=== PATIENT | male | born 1995 | race Caucasian/White ===

== ENCOUNTER 2016-05-21 14:07 | Emergency (ER) | payer OTHER ==
[2016-05-21] MEDS ORDERED: Ondansetron INJ* 2 MG/ML VIAL IV ONE (14:12)
[2016-05-21] MEDS ORDERED: NS 0.9% 1000 ML* 2,000 ML IV ONE (14:12)
[2016-05-21 15:18] LABS: Hematocrit 46 % (42-52); Hemoglobin 15.3 g/dl (14.0-18.0); Mean Corpuscular HGB Conc 34 g/dl (31-36); Mean Corpuscular Hemoglobin 29 pg (27-31); Mean Corpuscular Volume 86 fL (80-94); Mean Platelet Volume 9 um3 (7.4-10.4); Red Blood Count 5.26 10^6/ul (4.0-5.4); Red Cell Distribution Width 13 % (10.5-15); White Blood Count 13.6 10^3/ul (3.5-10.8)
[2016-05-21 15:22] LABS: Add Diff/Slide Review? Slide Review Added; Comments Flag Yes
[2016-05-21 15:33] LABS: BUN/Creatinine Ratio 7.4 (8-20); C Reactive Protein 5.19 mg/L (< 5.00); Calcium 9.6 mg/dL (8.6-10.3); EGFR Non-African American 101.1 (>60); Globulin 3.5 g/dL (2-4); Potassium 4.6 mmol/L (3.5-5.0); Total Protein 7.5 g/dL (6.4-8.9)
--- NOTE | 2016-05-21 15:36 | ED ---
Abdominal Pain/Male - HPI Summary HPI Summary: 21M presents with RLQ abdominal pain for 3 days. He states he has been sick for 3 weeks with fatigue and was diagnosed with mono last week. He admits to decrease in appetite. His last meal was this morning. He states he was nauseous. He denies any testicular pain, vomiting, diarrhea, and constipation. He denies any blood in his urine or stool. He denies any previous abdominal surgeries. He has never had this pain before. He was sent by [facility] to r/o appendicitis. - History of Current Complaint Chief Complaint: EDAbdPain Stated Complaint: ABD PAIN/FIVE STAR Time Seen by Provider: 05/21/16 14:57 Pain Intensity: 6 - Allergies/Home Medications Allergies/Adverse Reactions: Allergies Allergy/AdvReac Type Severity Reaction Status Date / Time No Known Allergies Allergy Verified 05/21/16 14:14 PMH/Surg Hx/FS Hx/Imm Hx Infectious Disease History: Yes Infectious Disease History: Denies: Traveled Outside the [place] in Last 30 Days - Social History Alcohol Use: Rare Substance Use Type: Reports: None Smoking Status (MU): Never Smoked Tobacco Review of Systems Negative: Fever Negative: Chest Pain Negative: Shortness Of Breath Positive: Abdominal Pain - RLQ pain, Nausea. Negative: Vomiting, Diarrhea All Other Systems Reviewed And Are Negative: Yes Physical Exam Triage Information Reviewed: Yes Vital Signs On Initial Exam: Initial Vitals Temp Pulse Resp BP Pulse Ox 98.2 F 84 18 118/74 100 05/21/16 14:14 05/21/16 14:14 05/21/16 14:14 05/21/16 14:14 05/21/16 14:14 Vital Signs Reviewed: Yes Appearance: Positive: Well-Appearing Skin: Positive: Warm, Dry Head/Face: Positive: Normal Head/Face Inspection Eyes: Positive: Normal, Conjunctiva Clear ENT: Positive: Normal ENT inspection, Pharynx normal, TMs normal Respiratory/Lung Sounds: Positive: Clear to Auscultation, Breath Sounds Present Cardiovascular: Positive: Normal, RRR Abdomen Description: Positive: Soft, Other: - RLQ tenderness, neg rovsings, obturator - Yogi Coma Scale Coma Scale Total: 15 Diagnostics - Vital Signs Vital Signs Temp Pulse Resp BP Pulse Ox 05/21/16 15:02 84 100 05/21/16 15:00 166/116 05/21/16 14:14 98.2 F 84 18 118/74 100 - Laboratory Lab Results: Lab Results 05/21/16 05/21/16 05/21/16 Range/Units 15:10 15:10 15:10 WBC 13.6 H (3.5-10.8) 10^3/ul RBC 5.26 (4.0-5.4) 10^6/ul Hgb 15.3 (14.0-18.0) g/dl Hct 46 (42-52) % MCV 86 (80-94) fL MCH 29 (27-31) pg MCHC 34 (31-36) g/dl RDW 13 (10.5-15) % Plt Count 163 (150-450) 10^3/ul MPV 9 (7.4-10.4) um3 Neut % (Auto) 27.3 L (38-83) % Lymph % (Auto) 63.5 H (25-47) % [place] % (Auto) 8.6 (1-9) % Eos % (Auto) 0.2 (0-6) % Baso % (Auto) 0.4 (0-2) % Absolute Neuts (auto) 3.7 (1.5-7.7) 10^3/ul Absolute Lymphs (auto) 8.7 H (1.0-4.8) 10^3/ul Absolute Monos (auto) 1.2 H (0-0.8) 10^3/ul Absolute Eos (auto) 0 (0-0.6) 10^3/ul Absolute Basos (auto) 0 (0-0.2) 10^3/ul Absolute Nucleated RBC 0.07 10^3/ul Nucleated RBC % 0.5 Sodium 136 (133-145) mmol/L Potassium 4.6 (3.5-5.0) mmol/L Chloride 102 (101-111) mmol/L Carbon Dioxide 28 (22-32) mmol/L Anion Gap 6 (2-11) mmol/L BUN 7 (6-24) mg/dL Creatinine 0.95 (0.67-1.17) mg/dL Est GFR ( Amer) 130.0 (>60) Est GFR (Non-Af Amer) 101.1 (>60) BUN/Creatinine Ratio 7.4 L (8-20) Glucose 90 (70-100) mg/dL Lactic Acid 0.9 (0.5-2.0) mmol/L Calcium 9.6 (8.6-10.3) mg/dL Total Bilirubin 1.00 (0.2-1.0) mg/dL AST 180 H (13-39) U/L ALT Pending Alkaline Phosphatase 196 H (34-104) U/L C-Reactive Protein 5.19 H (< 5.00) mg/L Total Protein 7.5 (6.4-8.9) g/dL Albumin 4.0 (3.2-5.2) g/dL Globulin 3.5 (2-4) g/dL Albumin/Globulin Ratio 1.1 (1-3) Lipase 17 (11.0-82.0) U/L Result Diagrams: 05/21/16 15:10 05/21/16 15:10 Lab Statement: Any lab studies that have been ordered have been reviewed, and results considered in the medical decision making process. - CT abdomen CT Interpretation: Positive (See Comments) - IMPRESSION: 1. THE APPENDICEAL WALL IS SLIGHTLY THICKENED ALTHOUGH THE APPENDIX FILLS WITH CONTRAST AND IS NOT OBSTRUCTED FAVORING THAT THE WALL THICKENING IS INCIDENTAL. RECOMMEND CLINICAL CORRELATION AND FOLLOW-UP. 2. SPLENOMEGALY. 3. ENLARGED MESENTERIC LYMPH NODES MOST PROMINENT IN THE RIGHT LOWER QUADRANT POSSIBLY INDICATING MESENTERIC LYMPHADENITIS OR ALTERNATIVELY SECONDARY TO THE PATIENT'S HISTORY OF MONONUCLEOSIS. CT Interpretation Completed By: Radiologist Re-Evaluation - Re-Evaluation First Eval Re-Evaluation Time: 16:45 Change: Unchanged Comment: patient declined any pain medication, explained results that lfts still elevated but still in acute phase on mono due to still having symptoms, elevated wbc but unsure if due to mono or something else so will have to wait for CT Second Eval Re-Evaluation Time: 18:36 Change: Unchanged Comment: pain mild in RLQ without rebound Abdominal Pain Fem Course/Dx - Course Course Of Treatment: 21M presents with RLQ pain for 3 days. was diagnosed with mono a week ago and had elevated liver enzymes. admits to anorexia. denies any n /v/d currently. on exam mild tenderness to RLQ without rebound or guarding. labs : elevated wbc, mono test positive, elevated LFT discussed with dr flynn that needs to follow up with yessi in couple weeks to make sure labs trend downward. CT shows splenomegaly, enlarged mesenteri lymph nodes, thickened appendical wall that does not appear obstructive, called dr gallardo and said likely mesenteric adenitis and can have follow up in office tomorrow. discussed results with patient. patient understands and agrees with plan - Diagnoses Differential Diagnosis/HQI/PQRI: Appendicitis, Pancreatitis, Other - mono Provider Diagnoses: Mononucleosis, RLQ abdominal pain - Provider Notifications Discussed Care Of Patient With: dr gallardo Time Discussed With Above Provider: 18:26 - will see in office tomorrow, likely mesenteric lymphadenitis Discharge - Discharge Plan Condition: Good Disposition: HOME Prescriptions: Ondansetron ODT TAB* [Zofran Odt TAB*] 4 mg PO Q6H PRN #12 tab.odt PRN Reason: Nausea Patient Education Materials: Acute Abdominal Pain (ED) Forms: *School Release Referrals: Gildardo Gallardo MD [Medical Doctor] - [facility] YESSI Torres [Primary Care Provider] - Additional Instructions: Take Tylenol or ibuprofen for pain every 6 hours Take zofran every 6 hours as needed for nausea Follow up with surgery tomorrow for reevaluation Follow up with Yessi to make sure liver functions test trend downward Return to ED if develop any new or worsening symptoms
[2016-05-21 15:50] LABS: Eosinophils % 1 % (0-6); Immature Granulocytes 1 % (0-9); Neutrophil % 28 % (38-83); Reactive Lymph % 40 % (0-6)
[2016-05-21 15:52] LABS: Add Path Review? YES; Mono Internal Control QC Line Present; RBC Morphology Normal (Normal)
[2016-05-21] MEDS ORDERED: Iohexol 300* (CONTRAST) 10 ML SDV IV ONE (16:35)
[2016-05-21 17:30] LABS: Urine Bilirubin Negative (Negative); Urine Glucose Negative (Negative); Urine Nitrite Negative (Negative)
--- NOTE | 2016-05-21 17:59 | RAD ---
INDICATION: Right lower quadrant abdominal pain. COMPARISON: There are no prior studies available for comparison. TECHNIQUE: A CT scan of the abdomen and pelvis was performed with intravenous and oral contrast following intravenous injection of 127 ml of Omnipaque 300 nonionic contrast. Contiguous axial sections were obtained from the lung bases through the symphysis pubis. Images were reconstructed in the coronal and sagittal planes. FINDINGS: The lung bases are clear. No pleural effusion is present. The liver is normal size without significant focal abnormality. No calcified gallstones are seen. The pancreas appears to be within normal limits. The spleen is moderately enlarged measuring 14.8 x 14.5 x 6.5 cm. No focal splenic abnormality is seen. The kidneys and adrenal glands are normal in size. No hydronephrosis is seen. No significant focal renal abnormality is seen. The aorta is normal in caliber and demonstrates homogeneous contrast opacification. There are enlarged mesenteric lymph nodes which are most prominent in the right lower quadrant measuring up to 1.5 cm in transverse dimension. There are also enlarged mesenteric lymph nodes in the periportal region measuring up to 1.3 cm in transverse dimension. No significant enlarged retroperitoneal lymph nodes are seen. The stomach, small and large bowel appear nondistended. The appendiceal wall is slightly thickened although the appendix fills with contrast and is not obstructed. No surrounding inflammatory changes are seen.. There is mild descending and sigmoid diverticulosis without evidence for diverticulitis. No free intraperitoneal air or fluid is seen. No significant focal osseous abnormality is seen. IMPRESSION: 1. THE APPENDICEAL WALL IS SLIGHTLY THICKENED ALTHOUGH THE APPENDIX FILLS WITH CONTRAST AND IS NOT OBSTRUCTED FAVORING THAT THE WALL THICKENING IS INCIDENTAL. RECOMMEND CLINICAL CORRELATION AND FOLLOW-UP. 2. SPLENOMEGALY. 3. ENLARGED MESENTERIC LYMPH NODES MOST PROMINENT IN THE RIGHT LOWER QUADRANT POSSIBLY INDICATING MESENTERIC LYMPHADENITIS OR ALTERNATIVELY SECONDARY TO THE PATIENT'S HISTORY OF MONONUCLEOSIS.
[2016-05-21] MEDS ORDERED: Ondansetron ODT TAB* 4 MG PO ONE (18:24)
[2016-05-21 18:27] VITALS: BP 129/59
== END 2016-05-21 18:41 | disposition home or self-care (01) ==
LOC: ED 14:07
DX: B27.90 Infectious mononucleosis, unspecified without complication (principal); R10.31 Right lower quadrant pain
CPT/HCPCS: 36415; 74177; 80053; 81003; 83605; 83690; 85025; 85060; 86140; 86308; 99283; A9270-GY; Q9967

== ENCOUNTER 2018-01-13 20:46 | Emergency (ER) | payer OTHER ==
[2018-01-13] MEDS ORDERED: Naproxen TAB* 250 MG PO ONE (21:10)
--- NOTE | 2018-01-13 21:18 | ED ---
Back Pain - HPI Summary HPI Summary: A 22 y/o M presents to ED with c/o acute on chronic back pain and worsening. The back pain radiates to his neck. Associated sx: intermittent episodes of UE numbness and tingling that shoots to his hands. He saw a physician over the summer who gave dx: disc herniation with Rx which helped at the time, but is no longer as effective. Pt initially hurt himself at the gym, but he has since stopped going due to worsening pain and sx. Pt has tried chiropractor, massage therapy and acupuncture to no relief. Pt denies recent tick bite. - History of Current Complaint Chief Complaint: EDNeckComplaint Stated Complaint: NECK/BACK PAIN Time Seen by Provider: 01/13/18 20:59 Hx Obtained From: Patient Onset/Duration: Still Present Onset/Duration: Still Present Timing: Constant Back Pain Location: Is Diffuse - upper back and neck Severity Initially: Severe Severity Currently: Severe Pain Intensity: 8 Pain Scale Used: 0-10 Numeric Alleviating Symptom(s): Nothing Associated Signs And Symptoms: Positive: Numbness - UE, Tingling - UE - Allergies/Home Medications Allergies/Adverse Reactions: Allergies Allergy/AdvReac Type Severity Reaction Status Date / Time No Known Allergies Allergy Verified 05/21/16 14:14 PMH/Surg Hx/FS Hx/Imm Hx Previously Healthy: Yes - pos: mono Endocrine/Hematology History: Denies: Hx Diabetes - Surgical History Surgery Procedure, Year, and Place: VSD surgery in 2004 Infectious Disease History: No Infectious Disease History: Denies: Traveled Outside the [place] in Last 30 Days - Family History Known Family History: Negative: Other - neg: RA, Crohns - Social History Occupation: Student Lives: Dormitory/Roommates Alcohol Use: Rare Hx Substance Use: No Substance Use Type: Reports: None Hx Tobacco Use: No Smoking Status (MU): Never Smoked Tobacco Review of Systems Negative: Fever Positive: Myalgia - back and neck pain Positive: Numbness - and tingling to UE All Other Systems Reviewed And Are Negative: Yes Physical Exam - Summary Physical Exam Summary: Appearance: Well appearing, no pain distress Skin: warm, dry, reflects adequate perfusion Head/face: normal Eyes: EOMI, MEKA ENT: mucous membranes moist Neck: supple, non-tender, no midline tenderness Respiratory: CTA, breath sounds present Cardiovascular: RRR, pulses symmetrical Abdomen: non-tender, soft Bowel Sounds: present Musculoskeletal: normal, strength/ROM intact, no palpable tenderness Neuro: normal, sensory motor intact, A&Ox3 Triage Information Reviewed: Yes Vital Signs On Initial Exam: Initial Vitals Temp Pulse Resp BP Pulse Ox 98.2 F 97 18 161/68 100 01/13/18 20:47 01/13/18 20:47 01/13/18 20:47 01/13/18 20:47 01/13/18 20:47 Vital Signs Reviewed: Yes Diagnostics - Vital Signs Vital Signs Temp Pulse Resp BP Pulse Ox 01/13/18 20:47 98.2 F 97 18 161/68 100 - Laboratory Lab Statement: Any lab studies that have been ordered have been reviewed, and results considered in the medical decision making process. - Radiology L-spine Radiology Interpretation Completed By: ED Physician Summary of Radiographic Findings: Loss of Lordotic curve. C-spine Radiology Interpretation Completed By: ED Physician Summary of Radiographic Findings: Cervical straightening. Re-Evaluation - Re-Evaluation 1 Re-Evaluation Time: 21:44 Change: Improved Comment: Discussing XR results and plan for DC. Pt voiced understanding. Back Pain Course/Dx - Course Course Of Treatment: Patient with chronic neck and back pain with x-rays that show straightening in both areas. Concern is for possible autoimmune or rheumatologic disorder. He will need to follow up closely with [facility] to have appropriate referrals and baseline testing done. He may need other imaging to include MRI. - Diagnoses Differential Diagnosis/HQI/PQRI: Positive: Strain, Sprain, Other - Rheumatoid arthritis, osteoarthritis, ankylosing spondylitis, other autoimmune disorder Provider Diagnoses: Chronic neck and back pain Discharge - Sign-Out/Discharge Documenting (check all that apply): Patient Departure - DC - Discharge Plan Condition: Improved Disposition: HOME Prescriptions: methylPREDNISolone [Medrol] 4 mg PO DAILY #1 tab.ds.pk Patient Education Materials: Chronic Back Pain (DC), Neck Pain (ED) Referrals: [facility] [Provider Group] Deepa Guerrero MD [Medical Doctor] - Additional Instructions: Call [facility] in the morning to schedule prompt follow-up. They should be able to order advanced imaging such as MRI of the areas of concern. They can also refer you to spine doctors. The number is attached. Return if worse, numbness, weakness, difficulty with bowel/bladder, new symptoms or other concerns. - Billing Disposition and Condition Condition: IMPROVED Disposition: Home - Attestation Statements Document Initiated by Scribe: Yes Documenting Scribe: Evelio Madrid Provider For Whom Scribe is Documenting (Include Credential): Dr. Dominik Tate MD Scribe Attestation: I, Evelio Madrid, scribed for Dr. Dominik Tate MD on 01/14/18 at 0411. Scribe Documentation Reviewed: Yes Provider Attestation: The documentation as recorded by the Evelio quan accurately reflects the service I personally performed and the decisions made by me, Dr. Dominik Tate MD
[2018-01-13] MEDS ORDERED: predniSONE TAB* 20 MG PO ONE (21:40)
[2018-01-13 22:00] VITALS: BP 124/76
--- NOTE | 2018-01-14 07:41 | RAD ---
INDICATION: Neck pain, radiculopathy. COMPARISON: There are no relevant prior studies available for comparison. TECHNIQUE: 3 views of the cervical spine were obtained including lateral, AP and open-mouth odontoid views. FINDINGS: C1-C7 are visualized. There is straightening of the cervical spine with loss of the normal cervical lordosis. No prevertebral soft tissue swelling or fracture is seen. There is mild degenerative disc disease at the C5-C6 level. IMPRESSION: 1. STRAIGHTENING OF THE CERVICAL SPINE. 2. MILD DEGENERATIVE DISC DISEASE. R0
--- NOTE | 2018-01-14 07:44 | RAD ---
INDICATION: Low back pain for 6 months. COMPARISON: There are no relevant prior studies available for comparison. TECHNIQUE: 5 views of the lumbar spine were obtained including lateral, oblique, AP and a coned-down lateral view of the lumbar sacral junction. FINDINGS: There is straightening of the lumbar spine. The vertebra are otherwise in normal alignment. No fracture is seen. Disc spaces appear maintained. IMPRESSION: DECREASE IN THE NORMAL LUMBAR LORDOSIS OTHERWISE UNREMARKABLE. R0
== END 2018-01-13 21:58 | disposition home or self-care (01) ==
LOC: ED 20:46
DX: M50.322 Other cervical disc degeneration at C5-C6 level (principal); M54.5 Low back pain
CPT/HCPCS: 72040; 72110; 99282; A9270-GY

== ENCOUNTER 2018-02-13 19:46 | Emergency (ER) | payer OTHER ==
[2018-02-13 21:02] LABS: ABS Basophils 0 10^3/ul (0-0.2); ABS Eosinophils 0.1 10^3/ul (0-0.6); ABS Lymphocytes 3.2 10^3/ul (1.0-4.8); ABS Monocytes 0.8 10^3/ul (0-0.8); ABS Neutrophils 3.9 10^3/ul (1.5-7.7); ABS Nucleated RBC 0 10^3/ul; Eosinophil % 1.7 %; Hematocrit 44 % (42-52); Hemoglobin 15.3 g/dl (14.0-18.0); Lymphocyte % 39.5 %; Mean Corpuscular HGB Conc 35 g/dl (31-36); Mean Corpuscular Hemoglobin 30 pg (27-31); Mean Corpuscular Volume 87 fL (80-94); Mean Platelet Volume 8.6 fL (7.4-10.4); Nucleated Red Blood Cells % 0; Platelet Count 236 10^3/ul (150-450); Red Cell Distribution Width 14 % (10.5-15); White Blood Count 8.1 10^3/ul (3.5-10.8)
[2018-02-13 21:19] LABS: EGFR Non-African American 83.6 (>60)
[2018-02-13] MEDS ORDERED: hydrOXYzine HCL TAB* 50 MG PO ONE (22:40)
[2018-02-13] MEDS ORDERED: Lidocaine 2% VISCOUS* 15 ML UDC PO ONE (22:42)
[2018-02-13] MEDS ORDERED: Al Hydrox/Mg Hydrox/Simet LIQ* 30 ML UDC PO ONE (22:42)
--- NOTE | 2018-02-14 | ED ---
HPI Chest Pain - HPI Summary HPI Summary: Patient complains of right-sided chest pain over the past couple days. Just pain described as intermittent, achy, 8/10, progressive and constant today, nonexertional, not associated with SOB. Patient states history of chest pain with reaction to medications like Tylenol, meloxicam, irritable THC medications. History of anxiety, but states no chest pain associated with anxiety attacks. Patient states he recently took irritable THC and chest pain started shortly after. Patient has not repeated irritable THC, but states chest pain symptoms progressive. Patient recently recently switched from meloxicam to Celebrex for cervical disc herniation. Patient denies fever, cough , sore throat, SOB, N/V/D, abdominal pain, change in urine, change in BM, history of blood clots, history of cancer, history of recent surgery or trauma. Patient has history of VSD and open-heart surgery in 2004, cervical disc herniation, for which he used to take meloxicam and Flexeril. Patient states pain has been increasing and Flexeril and meloxicam no longer effective. Patient has recently been switched to Celebrex. - History of Current Complaint Chief Complaint: EDChestPainROMI Time Seen by Provider: 02/13/18 21:54 Hx Obtained From: Patient Onset/Duration: Started Days Ago Timing: Intermittent Initial Severity: Moderate Current Severity: Moderate Pain Intensity: 9 Pain Scale Used: 0-10 Numeric Chest Pain Location: Discrete at:, Right Anterior Chest Pain Radiates: No Aggravating Factor(s): Nothing Alleviating Factor(s): Nothing Associated Signs and Symptoms: Positive: Chest Pain, Anxiety - Allergy/Home Medications Allergies/Adverse Reactions: Allergies Allergy/AdvReac Type Severity Reaction Status Date / Time No Known Allergies Allergy Verified 02/13/18 21:40 Home Medications: Home Medications Celebrex CAP* 200 mg PO DAILY 02/13/18 [History Confirmed 02/13/18] PMH/Surg Hx/FS Hx/Imm Hx Endocrine/Hematology History: Denies: Hx Anticoagulant Therapy, Hx Diabetes Cardiovascular History: Denies: Hx Cardiac Arrest, Hx Hypertension, Hx Pacemaker/ICD History: Denies: Hx Dialysis, Hx Renal Disease Sensory History: Denies: Hx Hearing Aid Neurological History: Denies: Hx CVA Psychiatric History: Denies: Hx Panic Disorder - Surgical History Surgery Procedure, Year, and Place: VSD surgery in 2005 - (TISSUE REPAIR TO HEART) Infectious Disease History: No Infectious Disease History: Denies: Traveled Outside the [place] in Last 30 Days - Family History Known Family History: Negative: Other - neg: RA, Crohns - Social History Alcohol Use: Rare Hx Substance Use: No Substance Use Type: Reports: Marijuana Hx Tobacco Use: No Smoking Status (MU): Never Smoked Tobacco Review of Systems Constitutional: Negative Eyes: Negative ENT: Negative Positive: Chest Pain Respiratory: Negative Gastrointestinal: Negative Genitourinary: Negative Musculoskeletal: Negative Skin: Negative Neurological: Negative Positive: Anxious All Other Systems Reviewed And Are Negative: Yes Physical Exam - Summary Physical Exam Summary: Chest pain not reproducible. Triage Information Reviewed: Yes Vital Signs On Initial Exam: Initial Vitals Temp Pulse Resp BP Pulse Ox 97.6 F 98 16 155/83 99 02/13/18 19:59 02/13/18 19:59 02/13/18 19:59 02/13/18 19:59 02/13/18 19:59 Vital Signs Reviewed: Yes Appearance: Positive: Well-Appearing Skin: Positive: Warm Head/Face: Positive: Normal Head/Face Inspection Eyes: Positive: Normal ENT: Positive: Normal ENT inspection Neck: Positive: Supple Respiratory/Lung Sounds: Positive: Clear to Auscultation Cardiovascular: Positive: Normal Abdomen Description: Positive: Nontender Musculoskeletal: Positive: Normal Neurological: Positive: Normal Psychiatric: Positive: Normal AVPU Assessment: Alert - Fitzpatrick Coma Scale Best Eye Response: 4 - Spontaneous Best Motor Response: 6 - Obeys Commands Best Verbal Response: 5 - Oriented Coma Scale Total: 15 Diagnostics - Vital Signs Vital Signs Temp Pulse Resp BP Pulse Ox 02/13/18 23:46 75 20 128/59 96 02/13/18 23:00 82 22 97 02/13/18 22:46 78 21 132/74 97 02/13/18 22:15 74 14 145/67 98 02/13/18 22:00 72 12 98 02/13/18 21:47 76 97 02/13/18 21:46 73 133/84 98 02/13/18 19:59 97.6 F 98 16 155/83 99 - Laboratory Lab Results: Lab Results 02/13/18 02/13/18 02/13/18 Range/Units 20:51 20:51 20:51 WBC 8.1 (3.5-10.8) 10^3/ul RBC 5.10 (4.00-5.40) 10^6/ul Hgb 15.3 (14.0-18.0) g/dl Hct 44 (42-52) % MCV 87 (80-94) fL MCH 30 (27-31) pg MCHC 35 (31-36) g/dl RDW 14 (10.5-15) % Plt Count 236 (150-450) 10^3/ul MPV 8.6 (7.4-10.4) fL Neut % (Auto) 48.7 % Lymph % (Auto) 39.5 % [place] % (Auto) 9.7 % Eos % (Auto) 1.7 % Baso % (Auto) 0.4 % Absolute Neuts (auto) 3.9 (1.5-7.7) 10^3/ul Absolute Lymphs (auto) 3.2 (1.0-4.8) 10^3/ul Absolute Monos (auto) 0.8 (0-0.8) 10^3/ul Absolute Eos (auto) 0.1 (0-0.6) 10^3/ul Absolute Basos (auto) 0 (0-0.2) 10^3/ul Absolute Nucleated RBC 0 10^3/ul Nucleated RBC % 0 Sodium 138 (135-145) mmol/L Potassium 3.9 (3.5-5.0) mmol/L Chloride 106 (101-111) mmol/L Carbon Dioxide 26 (22-32) mmol/L Anion Gap 6 (2-11) mmol/L BUN 26 H (6-24) mg/dL Creatinine 1.11 (0.67-1.17) mg/dL Est GFR ( Amer) 101.2 (>60) Est GFR (Non-Af Amer) 83.6 (>60) BUN/Creatinine Ratio 23.4 H (8-20) Glucose 98 (70-100) mg/dL Calcium 9.7 (8.6-10.3) mg/dL Total Bilirubin 0.40 (0.2-1.0) mg/dL AST 24 (13-39) U/L ALT 35 (7-52) U/L Alkaline Phosphatase 71 (34-104) U/L Troponin I 0.00 (<0.04) ng/mL Total Protein 6.9 (6.4-8.9) g/dL Albumin 4.5 (3.2-5.2) g/dL Globulin 2.4 (2-4) g/dL Albumin/Globulin Ratio 1.9 (1-3) Result Diagrams: 02/13/18 20:51 02/13/18 20:51 Lab Statement: Any lab studies that have been ordered have been reviewed, and results considered in the medical decision making process. Chest Pain Course/Dx - Course Course Of Treatment: Patient complains of right-sided chest pain over the past couple days. Just pain described as intermittent, achy, 8/, progressive and constant today, nonexertional, not associated with SOB. Patient states history of chest pain with reaction to medications like Tylenol, meloxicam, irritable THC medications. History of anxiety, but states no chest pain associated with anxiety attacks. Patient states he recently took irritable THC and chest pain started shortly after. Patient has not repeated irritable THC, but states chest pain symptoms progressive. Patient recently recently switched from meloxicam to Celebrex for cervical disc herniation. Patient denies fever, cough , sore throat, SOB, N/V/D, abdominal pain, change in urine, change in BM, history of blood clots, history of cancer, history of recent surgery or trauma. Patient has history of VSD and open-heart surgery in 2004, cervical disc herniation, for which he used to take meloxicam and Flexeril. Patient states pain has been increasing and Flexeril and meloxicam no longer effective. Patient has recently been switched to Celebrex. Physical exam:Chest pain not reproducible. Vital signs within normal limits and stable. Chest x-ray unremarkable. EKG unremarkable. Labs unremarkable. Patient states symptoms improved with Atarax and GI cocktail. Trial of GI cocktail as patient states he has history of heartburn. Rx for Atarax for anxiety. - Diagnoses Provider Diagnoses: Atypical chest pain Discharge - Sign-Out/Discharge Documenting (check all that apply): Patient Departure - Discharge Plan Condition: Stable Disposition: HOME Prescriptions: hydrOXYzine pamoate [Vistaril] 50 mg PO BID 20 Days #40 capsule Omeprazole 20 mg PO DAILY 30 Days #30 capsule. Patient Education Materials: Chest Pain (ED) Referrals: Lizbeth Obrien DO [Primary Care Provider] - Additional Instructions: Follow-up with primary care. Return to the ED for any new or worsening symptoms - Billing Disposition and Condition Condition: STABLE Disposition: Home
[2018-02-14 00:29] VITALS: BP 140/70
== END 2018-02-14 00:33 | disposition home or self-care (01) ==
LOC: ED 19:46
DX: R07.89 Other chest pain (principal); F41.9 Anxiety disorder, unspecified
CPT/HCPCS: 36415; 71045; 80053; 84484; 85025; 86703; 93005; 99284; A9270-GY

== ENCOUNTER 2018-07-11 19:33 | Emergency (ER) | payer OTHER ==
[2018-07-11] MEDS ORDERED: NS 0.9% 1000 ML** 1,000 ML IV ONE (21:53)
[2018-07-11] MEDS ORDERED: Ketorolac INJ* 30 MG/ML 1 ML VIAL IV ONE (21:53)
[2018-07-11] MEDS ORDERED: Metoclopramide IV* 5 MG/ML 2 ML VIAL IV ONE (21:53)
[2018-07-11] MEDS ORDERED: diPHENhydraMINE IV* 50 MG/ML 1 ml VIAL (BENADRYL) IV ONE ×2 (21:53→22:52)
[2018-07-11 22:08] LABS: Hematocrit 43 % (36-46); Hemoglobin 14.6 g/dL (14.0-18.0); Mean Corpuscular HGB Conc 34 g/dL (31-36); Mean Corpuscular Hemoglobin 29 pg (27-31); Mean Corpuscular Volume 87 fL (80-94); Mean Platelet Volume 8.8 fL (7.4-10.4); Platelet Count 185 10^3/uL (150-450); Red Blood Count 4.97 10^6 /uL (4.18-5.48); Red Cell Distribution Width 13 % (10.5-15); White Blood Count 6.2 10^3/uL (3.5-10.8)
[2018-07-11 22:11] LABS: ABS Basophils 0 10^3/ul (0-0.2); ABS Eosinophils 0.2 10^3/ul (0-0.6); ABS Lymphocytes 2.4 10^3/ul (1.0-4.8); ABS Monocytes 0.7 10^3/ul (0-0.8); ABS Neutrophils 2.9 10^3/ul (1.5-7.7); ABS Nucleated RBC 0 10^3/ul; Eosinophil % 2.8 %; Lymphocyte % 39.1 %; Nucleated Red Blood Cells % 0.1
[2018-07-11 22:24] LABS: ALT 22 U/L (7-52); AST 19 U/L (13-39); Albumin 4.3 g/dL (3.2-5.2); Albumin/Globulin Ratio 1.7 (1-3); Alkaline Phosphatase 62 U/L (34-104); Anion Gap 4 mmol/L (2-11); BUN/Creatinine Ratio 17.6 (8-20); Blood Urea Nitrogen 19 mg/dL (6-24); C Reactive Protein < 1.00 mg/L (<8.01); CO2 Carbon Dioxide 29 mmol/L (22-32); Calcium 9.5 mg/dL (8.6-10.3); Chloride 107 mmol/L (101-111); EGFR African American 103.5 (>60); EGFR Non-African American 85.5 (>60); Globulin 2.6 g/dL (2-4); Glucose 109 mg/dL (70-100); Potassium 4.2 mmol/L (3.5-5.0); Sodium 140 mmol/L (135-145); Total Protein 6.9 g/dL (6.4-8.9)
--- NOTE | 2018-07-11 22:29 | ED ---
Headache - HPI Summary HPI Summary: Patient complains of constant progressive headache 2 weeks, and blurred vision 3 days. Admits to hx of occasional GONZALEZ, but states this is different. Denies thunderclap headache, states pain started gradually over the past 2 weeks. Patient does wear glasses or contacts, most recent prescription fall of 2017. States pain is worse with reading and when in class. Patient was seen at [facility] and sent to the ED for further evaluation. Has appointment with ophthalmology tomorrow. Patient has recent diagnosis of urinary tract infection with strep viridans, currently taking amoxicillin. Patient concerned for brain abscess as he states he googled strep veridans infection and saw it was associated with brain abscess. Denies focal deficits, fever, neck stiffness, trauma, cough, sore throat, CP, SOB, N/V/D, abdominal pain, change in urine, change in BM. History is herniated disc. No anti- coagulation. Denies EtOH. - History Of Current Complaint Chief Complaint: EDHeadache Stated Complaint: HEADACHE PER PT Time Seen by Provider: 07/11/18 21:29 Hx Obtained From: Patient Onset/Duration: Gradual Onset, Started weeks ago Initially Headache Was: Severe Currently Pain Is: Severe Timing: Constant Character: Throbbing Location of Headache: Occipital Aggravating Factor: Position Change Allevating Factors: Rest Associated Signs And Symptoms: Visual Changes - Risk Factors SAH Risk Factors: Negative Meningitis Risk Factors: Negative SDH Risk Factors: Male - Allergies/Home Medications Allergies/Adverse Reactions: Allergies Allergy/AdvReac Type Severity Reaction Status Date / Time No Known Allergies Allergy Verified 02/13/18 21:40 Home Medications: Home Medications Amoxicillin PO (*) [Amoxicillin 875 MG (*)] 875 mg PO BID 07/11/18 [History Confirmed 07/11/18] Cyclobenzaprine TAB* [Flexeril 10 MG TAB*] 10 mg PO DAILY 07/11/18 [History Confirmed 07/11/18] PMH/Surg Hx/FS Hx/Imm Hx Endocrine/Hematology History: Denies: Hx Anticoagulant Therapy, Hx Diabetes Cardiovascular History: Denies: Hx Cardiac Arrest, Hx Hypertension, Hx Pacemaker/ICD History: Denies: Hx Dialysis, Hx Renal Disease Sensory History: Denies: Hx Hearing Aid Neurological History: Denies: Hx CVA Psychiatric History: Denies: Hx Panic Disorder - Surgical History Surgery Procedure, Year, and Place: VSD surgery in 2005 - (TISSUE REPAIR TO HEART) Infectious Disease History: No Infectious Disease History: Denies: Traveled Outside the [place] in Last 30 Days - Family History Known Family History: Negative: Other - neg: RA, Crohns - Social History Alcohol Use: Rare Hx Substance Use: No Substance Use Type: Reports: Marijuana Hx Tobacco Use: No Smoking Status (MU): Never Smoked Tobacco Review of Systems Constitutional: Negative Positive: Blurred Vision ENT: Negative Cardiovascular: Negative Respiratory: Negative Gastrointestinal: Negative Genitourinary: Negative Musculoskeletal: Negative Skin: Negative Positive: Headache Psychological: Normal All Other Systems Reviewed And Are Negative: Yes Physical Exam Triage Information Reviewed: Yes Vital Signs On Initial Exam: Initial Vitals Temp Pulse Resp BP Pulse Ox 98 F 86 18 139/85 99 07/11/18 19:36 07/11/18 19:36 07/11/18 19:36 07/11/18 19:36 07/11/18 19:36 Vital Signs Reviewed: Yes Appearance: Positive: Well-Appearing Skin: Positive: Warm Head/Face: Positive: Normal Head/Face Inspection Eyes: Positive: Normal ENT: Positive: Normal ENT inspection Neck: Positive: Supple Respiratory/Lung Sounds: Positive: Clear to Auscultation Cardiovascular: Positive: Normal Abdomen Description: Positive: Nontender Musculoskeletal: Positive: Normal Neurological: Positive: Normal Psychiatric: Positive: Normal AVPU Assessment: Alert - Yogi Coma Scale Best Eye Response: 4 - Spontaneous Best Motor Response: 6 - Obeys Commands Best Verbal Response: 5 - Oriented Coma Scale Total: 15 Diagnostics - Vital Signs Vital Signs Temp Pulse Resp BP Pulse Ox 07/11/18 22:00 74 100 07/11/18 21:57 78 95/81 100 07/11/18 21:26 72 130/68 99 07/11/18 19:36 98 F 86 18 139/85 99 - Laboratory Lab Results: Lab Results 07/11/18 07/11/18 Range/Units 22:02 22:02 WBC 6.2 (3.5-10.8) 10^3/uL RBC 4.97 (4.18-5.48) 10^6 /uL Hgb 14.6 (14.0-18.0) g/dL Hct 43 (36-46) % MCV 87 (80-94) fL MCH 29 (27-31) pg MCHC 34 (31-36) g/dL RDW 13 (10.5-15) % Plt Count 185 (150-450) 10^3/uL MPV 8.8 (7.4-10.4) fL Neut % (Auto) 46.7 % Lymph % (Auto) 39.1 % [place] % (Auto) 11.1 % Eos % (Auto) 2.8 % Baso % (Auto) 0.3 % Absolute Neuts (auto) 2.9 (1.5-7.7) 10^3/ul Absolute Lymphs (auto) 2.4 (1.0-4.8) 10^3/ul Absolute Monos (auto) 0.7 (0-0.8) 10^3/ul Absolute Eos (auto) 0.2 (0-0.6) 10^3/ul Absolute Basos (auto) 0 (0-0.2) 10^3/ul Absolute Nucleated RBC 0 10^3/ul Nucleated RBC % 0.1 Sodium 140 (135-145) mmol/L Potassium 4.2 (3.5-5.0) mmol/L Chloride 107 (101-111) mmol/L Carbon Dioxide 29 (22-32) mmol/L Anion Gap 4 (2-11) mmol/L BUN 19 (6-24) mg/dL Creatinine 1.08 (0.67-1.17) mg/dL Est GFR ( Amer) 103.5 (>60) Est GFR (Non-Af Amer) 85.5 (>60) BUN/Creatinine Ratio 17.6 (8-20) Glucose 109 H (70-100) mg/dL Calcium 9.5 (8.6-10.3) mg/dL Total Bilirubin 0.40 (0.2-1.0) mg/dL AST 19 (13-39) U/L ALT 22 (7-52) U/L Alkaline Phosphatase 62 (34-104) U/L C-Reactive Protein < 1.00 (<8.01) mg/L Total Protein 6.9 (6.4-8.9) g/dL Albumin 4.3 (3.2-5.2) g/dL Globulin 2.6 (2-4) g/dL Albumin/Globulin Ratio 1.7 (1-3) Result Diagrams: 07/11/18 22:02 07/11/18 22:02 Lab Statement: Any lab studies that have been ordered have been reviewed, and results considered in the medical decision making process. Headache Course/Dx - Course Course Of Treatment: Patient complains of constant progressive headache 2 weeks , and blurred vision 3 days. Denies thunderclap headache, states pain started gradually over the past 2 weeks. Patient does wear glasses or contacts, most recent prescription fall of 2017. States pain is worse with reading and when in class. Patient was seen at [facility] and sent to the ED for further evaluation. Has appointment with ophthalmology tomorrow. Patient has recent diagnosis of urinary tract infection with strep viridans, currently taking amoxicillin. Patient concerned for brain abscess as he states he googled strep veridans infection and saw it was associated with brain abscess. Denies focal deficits, fever, neck stiffness, trauma, cough, sore throat, CP, SOB, N/V/ D, abdominal pain, change in urine, change in BM. History is herniated disc. No anti-coagulation. Denies EtOH. Neuro exam normal. Vital signs within normal limits. Labs unremarkable. Head CT for constant progressive headache 2 weeks negative. - Diagnoses Provider Diagnoses: Migraine Discharge - Sign-Out/Discharge Documenting (check all that apply): Patient Departure Patient Received Moderate/Deep Sedation with Procedure: No - Discharge Plan Condition: Stable Disposition: HOME Prescriptions: Cyclobenzaprine TAB* [Flexeril 10 MG TAB*] 10 mg PO TID PRN 5 Days #15 tab PRN Reason: Pain Patient Education Materials: Migraine Headache (ED) Referrals: Lizbeth Obrien DO [Primary Care Provider] - Additional Instructions: Check your prescription for eye glasses and contacts. Follow-up with primary care. Return to the ED for any new or worsening symptoms. - Billing Disposition and Condition Condition: STABLE Disposition: Home
[2018-07-12] MEDS ORDERED: Acetaminophen TAB* 325 MG PO ONE (00:37)
[2018-07-12 01:35] VITALS: BP 114/63
== END 2018-07-12 01:35 | disposition home or self-care (01) ==
LOC: ED 19:33
DX: G43.909 Migraine, unspecified, not intractable, without status migrainosus (principal)
CPT/HCPCS: 36415; 70450; 80053; 85025; 86140; 96361; 96374; 96375; 99283; A9270-GY; J1200; J1885; J2765